=== PATIENT | female | born 1995 | race Caucasian/White ===

== ENCOUNTER 2016-12-06 01:30 | Emergency (ER) | payer MEDICAID ==
[~2016-12-06 01:30] MED LIST: AMOXICILLIN500 M1 PO; ERYTHROMYCIN1 GM OP; FLAGYL250 MG PO; IBUPROFEN800 M1 PO; IRON325 M3 PO; KEFLEX500 M4 PO; MACROBID 100 M100 M1 PO; NO HOME MEDS; PRENATAL FORMU1 EAC1 PO; PRENATAL VITAMI1 TAB PO; TRIAMCINOLONE A80 G1 TP; VISTARIL25 M1 PO; [UNRECOGNIZED DRUG - OTHER] TP
[2016-12-06] MEDS ORDERED: ERYTHROMYCIN1 GM OP (02:15)
[2016-12-06] MEDS ORDERED: KEFLEX500 M4 PO (02:15)
[2017-02-27] MEDS ORDERED: NO HOME MEDICATION XX (12:23)
== END 2016-12-06 02:31 ==
LOC: EDMED 01:30
DX: H00.011 Hordeolum externum right upper eyelid (principal); F17.200 Nicotine dependence, unspecified, uncomplicated

== ENCOUNTER 2017-01-26 08:29 | Emergency (ER) | payer MEDICAID ==
[2017-01-26] MEDS ORDERED: LOW-OGESTREL-21 EACH PO (08:37)
[2017-01-26] MEDS ORDERED: POLYTRIM EYE DR10 M1 OP (08:47)
[2017-02-27] MEDS ORDERED: NO HOME MEDICATION XX (12:23)
== END 2017-01-26 09:33 ==
LOC: EDMED 08:29
DX: J02.9 Acute pharyngitis, unspecified (principal); J45.909 Unspecified asthma, uncomplicated